=== PATIENT | male | born 1990 | race Caucasian/White ===

== ENCOUNTER 2018-09-03 20:10 | Emergency (ER) | payer SELFPAY ==
[2018-09-03] MEDS ORDERED: Sodium Chloride 0.9% 10 ML Syringe FLUSH PRN (20:25)
[2018-09-03] MEDS ORDERED: Ondansetron 4 MG/2 ML SDV IVPUSH ONE (20:26)
[2018-09-03] MEDS ORDERED: HYDROmorphone 2 MG/ML SDV IVPUSH ONE (20:26)
--- NOTE | 2018-09-03 20:33 | EDM.PDOC ---
ED HPI GENERAL MEDICAL PROBLEM - General Chief Complaint: Chest Pain Stated Complaint: CHEST PAIN Time Seen by Provider: 09/03/18 20:28 Source of Information: Reports: Patient History Limitations: Reports: No Limitations - History of Present Illness INITIAL COMMENTS - FREE TEXT/NARRATIVE: Presents with right sided chest pain, onset at 1500, worse with inspiration and trunk movement. 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 Denies h/o CAD or DVT/PE. Also c/o productive cough, possible due to inhalation of fumes of rotting beets. His H2S monitor was beeping today. Onset: Today Onset Date: 09/03/18 Onset Time: 15:00 Location: Reports: Chest Quality: Reports: Stabbing Severity: Moderate right chest Pain Score (Numeric/FACES): 10 - Related Data Allergies Allergy/AdvReac Type Severity Reaction Status Date / Time ibuprofen Allergy Hives Verified 09/03/18 20:26 iodine Allergy Hives Verified 09/03/18 20:26 Home Meds: Home Meds Acetaminophen/HYDROcodone [Fowler 325-5 MG] 1 - 2 tab PO Q6H PRN #16 tab [Rx] Cyclobenzaprine [Flexeril] 10 mg PO TID PRN #20 tab 09/03/18 [Rx] Past Medical History - Past Health History Medical/Surgical History: Denies Medical/Surgical History Social & Family History - Tobacco Use Smoking Status *Q: Never Smoker ED ROS GENERAL - Review of Systems Review Of Systems: ROS reveals no pertinent complaints other than HPI. ED EXAM, GENERAL - Physical Exam Exam: See Below Exam Limited By: No Limitations General Appearance: Alert, WD/WN, Mild Distress Ears: Normal External Exam Nose: Normal Inspection Throat/Mouth: No Airway Compromise Head: Atraumatic, Normocephalic Neck: Full Range of Motion Respiratory/Chest: No Respiratory Distress, Lungs Clear, Normal Breath Sounds Cardiovascular: Regular Rate, Rhythm, No Murmur, Other (moderate right chest wall tenderness overlying pectoris muscle) GI/Abdominal: No Distention Neurological: Alert, Normal Cognition, No Motor/Sensory Deficits Psychiatric: Normal Affect, Normal Mood Skin Exam: Warm, Dry, Intact EKG INTERPRETATION EKG Date: 09/03/18 Time: 20:12 Rhythm: NSR Rate (Beats/Min): 87 Hostetter: Normal P-Wave: Present QRS: Normal ST-T: Other (Early repolarization ST elevation,) QT: Normal Comparison: NA - No Prior EKG EKG Interpretation Comments: LVH Course - Vital Signs Last Recorded V/S: Last Vital Signs Temp 36.8 C 09/03/18 20:15 Pulse 96 09/03/18 20:35 Resp 17 09/03/18 20:35 BP 135/76 09/03/18 20:35 Pulse Ox 99 09/03/18 20:35 - Orders/Labs/Meds Orders: Active Orders 24 hr Category Date Time Status EKG Documentation Completion [RC] ASDIRECTED Care 09/03/18 20:19 Active CXR [Chest 1V Frontal] [CR] Stat Exams 09/03/18 20:13 Taken Cyclobenzaprine [Flexeril] Med 09/03/18 21:44 Once 10 mg PO ONETIME ONE Sodium Chloride 0.9% [Saline Flush] Med 09/03/18 20:25 Active 10 ml FLUSH ASDIRECTED PRN Saline Lock Insert [OM.PC] Routine Oth 09/03/18 20:25 Ordered EKG 12 Lead [EK] Stat Ther 09/03/18 20:19 Ordered Medication Orders Sodium Chloride (Saline Flush) 10 ml FLUSH ASDIRECTED PRN PRN Reason: Keep Vein Open Labs: Laboratory Tests 09/03/18 09/03/18 09/03/18 Range/Units 20:35 20:35 20:35 WBC 10.9 (4.5-12.0) X10-3/uL RBC 4.05 L (4.30-5.75) x10(6)uL Hgb 13.7 (13.5-17.8) g/dL Hct 40.1 (30.0-51.3) % MCV 98.9 H (80-96) fL MCH 33.8 H (27.7-33.6) pg MCHC 34.2 (32.2-35.4) g/dL RDW 13.3 (11.5-15.5) % Plt Count 251 (125-369) X10(3)uL MPV 8.3 (7.4-10.4) fL Neut % (Auto) 68.9 (46-82) % Lymph % (Auto) 16.3 (13-37) % Talbot % (Auto) 8.9 (4-12) % Eos % (Auto) 2 (1.0-5.0) % Baso % (Auto) 4 H (0-2) % Neut # (Auto) 7.5 (1.6-8.3) # Lymph # (Auto) 1.8 (0.6-5.0) # Talbot # (Auto) 1.0 (0.0-1.3) # Eos # (Auto) 0.2 (0.0-0.8) # Baso # (Auto) 0.4 H (0.0-0.2) # Sodium 145 (135-145) mmol/L Potassium 3.5 (3.5-5.3) mmol/L Chloride 105 (100-110) mmol/L Carbon Dioxide 29 (21-32) mmol/L BUN 10 (7-18) mg/dL Creatinine 0.8 (0.70-1.30) mg/dL Est Cr Clr Drug Dosing TNP Estimated GFR (MDRD) > 60 (>60) BUN/Creatinine Ratio 12.5 (9-20) Glucose 125 H (80-116) mg/dL Calcium 9.4 (8.6-10.2) mg/dL Total Bilirubin 0.4 (0.1-1.3) mg/dL AST 26 H (5-25) IU/L ALT 32 (12-36) U/L Alkaline Phosphatase 67 (56-112) IU/L Troponin I < 0.017 L (<0.017-0.056) ng/mL Total Protein 7.1 (6.0-8.0) g/dL Albumin 3.6 (3.5-5.2) g/dL Globulin 3.5 g/dL Albumin/Globulin Ratio 1.0 Meds: Medications Generic Name Dose Route Start Last Admin Trade Name Freq PRN Reason Stop Dose Admin Sodium Chloride 10 ml 09/03/18 20:25 Saline Flush FLUSH ASDIRECTED PRN Keep Vein Open Discontinued Medications Generic Name Dose Route Start Last Admin Trade Name Freq PRN Reason Stop Dose Admin Hydromorphone HCl 1 mg 09/03/18 20:26 09/03/18 20:33 Dilaudid IVPUSH 09/03/18 20:27 1 mg ONETIME ONE Administration Ondansetron HCl 4 mg 09/03/18 20:26 09/03/18 20:34 Zofran IVPUSH 09/03/18 20:27 4 mg ONETIME ONE Administration - Radiology Interpretation Free Text/Narrative:: CXR: No acute disease (ED provider interpretation). - Re-Assessments/Exams Free Text/Narrative Re-Assessment/Exam: 09/03/18 21:47 Symptoms improved after Dilaudid 1 mg IV. Departure - Departure Time of Disposition: 21:47 Disposition: Home, Self-Care 01 Condition: Good Clinical Impression: Muscle strain of chest wall Qualifiers: Encounter type: initial encounter Qualified Code(s): S29.011A - Strain of muscle and tendon of front wall of thorax, initial encounter Prescriptions: Acetaminophen/HYDROcodone [Fowler 325-5 MG] 1 - 2 tab PO Q6H PRN #16 tab PRN Reason: Pain Cyclobenzaprine [Flexeril] 10 mg PO TID PRN #20 tab PRN Reason: Muscle Spasm Instructions: Muscle Strain, [id number] Referrals: PCP,Unknown [Primary Care Provider] - Forms: ED Department Discharge, ED Return to Work/School Form Additional Instructions: Fill prescriptions for Fowler and Flexeril and take as directed. Rest, ice the area affected for up to 20 minutes at a time several times a day. Light duty x 1 week. Follow up in 1 week if symptoms don't improve. Return to the ER if symptoms worsen. - My Orders Last 24 Hours: My Active Orders 09/03/18 20:13 CXR [Chest 1V Frontal] [CR] Stat 09/03/18 20:19 EKG Documentation Completion [RC] ASDIRECTED EKG 12 Lead [EK] Stat 09/03/18 20:25 Sodium Chloride 0.9% [Saline Flush] 10 ml FLUSH ASDIRECTED PRN Saline Lock Insert [OM.PC] Routine 09/03/18 21:44 Cyclobenzaprine [Flexeril] 10 mg PO ONETIME ONE - Assessment/Plan Last 24 Hours: My Active Orders 09/03/18 20:13 CXR [Chest 1V Frontal] [CR] Stat 09/03/18 20:19 EKG Documentation Completion [RC] ASDIRECTED EKG 12 Lead [EK] Stat 09/03/18 20:25 Sodium Chloride 0.9% [Saline Flush] 10 ml FLUSH ASDIRECTED PRN Saline Lock Insert [OM.PC] Routine 09/03/18 21:44 Cyclobenzaprine [Flexeril] 10 mg PO ONETIME ONE
[2018-09-03] MEDS ORDERED: Cyclobenzaprine 10 MG Tab PO ONE (21:44)
--- NOTE | 2018-09-04 11:54 | CR ---
INDICATION: Chest pain. CHEST: Portable AP upright view of the chest 09/03/18 - no comparisons. The heart, mediastinum, and bony thorax were unremarkable. An active infiltrate, effusion, contusion, or pneumothorax was not identified. IMPRESSION: No active disease. MTDD
== END 2018-09-03 22:14 | disposition home or self-care (01) ==
LOC: FB.ED 20:10
DX: S29.011A Strain of muscle and tendon of front wall of thorax, initial encounter (principal); Z88.6 Allergy status to analgesic agent; Z88.8 Allergy status to other drugs, medicaments and biological substances; X50.0XXA Overexertion from strenuous movement or load, initial encounter; Y99.0 Civilian activity done for income or pay
CPT/HCPCS: 36415; 71045; 80053; 84484; 85025; 93005; 96374; 96375; 99285-25; A9270-GY; J1170; J2405